=== PATIENT | male | born 1960 ===

== ENCOUNTER 2021-09-12 06:59 | Day surgery (SDC) | payer BC ==
[2021-09-09 16:20] LABS: SARS-CoV-2 Antigen Rapid Res Negative (Negative)
[2021-09-12] MEDS: NA CHLORIDE 0.9% 1,000 ML ONE ×2 (08:30→08:35)
[2021-09-12] MEDS ORDERED: LIDOCAINE 1% MPF 5 ML VIAL ONE (08:32)
[2021-09-12] MEDS ORDERED: propofoL 200 MG/20 ML VIAL IV ONE (08:32)
[2021-09-12] MEDS ORDERED: GLYCOPYRROLATE 0.2 MG/ML SYR ONE (08:32)
[2021-09-12 10:33] VITALS: O2SAT 97
[2021-09-12 11:09] VITALS: BP 122/75; TEMP 97
== END 2021-09-12 10:46 | disposition home or self-care (01) ==
LOC: OR 06:59
PROVIDERS: ATTEND Surgery
PROC: 0DBH8ZX Excision of Cecum, Via Natural or Artificial Opening Endoscopic, Diagnostic (ICD-10-PCS; principal; 2021-09-12 08:30)
DX: Z12.11 Encounter for screening for malignant neoplasm of colon (principal); Z86.010 Personal history of colon polyps; Z20.822 Contact with and (suspected) exposure to COVID-19; K63.5 Polyp of colon; K64.4 Residual hemorrhoidal skin tags; K64.8 Other hemorrhoids
CPT/HCPCS: 36415; 82947; 88305; 87811; 45384; J2704; J7030